=== PATIENT | male | born 1995 | race Caucasian/White ===

== ENCOUNTER 2022-05-14 16:04 | Emergency (ER) | payer SELFPAY ==
[~2022-05-14] VITALS: Ht 182.9 cm; Wt 75.7 kg
[2022-05-14] MEDS ORDERED: MUPIROCIN22 GM TOP (16:40)
== END 2022-05-14 16:46 | disposition home or self-care (01) ==
LOC: FSED 16:33
DX: L02.818 Cutaneous abscess of other sites (principal); F15.10 Other stimulant abuse, uncomplicated; F12.10 Cannabis abuse, uncomplicated; L98.8 Other specified disorders of the skin and subcutaneous tissue; F17.210 Nicotine dependence, cigarettes, uncomplicated
CPT/HCPCS: 99282